=== PATIENT | male | born 1995 | race Caucasian/White ===

== ENCOUNTER → 2019-09-01 | Outpatient (CLI) | payer OTHER ==
--- NOTE | 2019-09-01 10:28 | CT ---
EXAMINATION TYPE: CT wrist LT wo con DATE OF EXAM: 09/01/2019 COMPARISON: None HISTORY: Lt wrist pain CT DLP: 91.[address] of the left wrist with reconstruction imaging. TECHNIQUE: Unenhanced CT of the left wrist was performed with bone and soft tissue window settings lou bmitted in the axial coronal and sagittal planes. At a separate workstation [id number] TR imaging was obtai ambrose. FINDINGS: I do not see evidence for displaced or impacted fracture. No evidence for soft tissue swelling. No de generative changes identified. No soft tissue masses. No bony destructive process. No evidence for sc apholunate dislocation. IMPRESSION: 1. No evidence for fracture or dislocation
== END | disposition home or self-care (01) ==
LOC: RADCTMAIN 07:15
PROVIDERS: ATTEND Orthopaedic Surgery
DX: M25.532 Pain in left wrist (principal); S63.502A Unspecified sprain of left wrist, initial encounter

== ENCOUNTER 2020-04-15 09:58 | Emergency (ER) | payer OTHER ==
[2020-04-15 10:02] VITALS: BP 143/95; PULSE 78; RESP 18; TEMP 98.8
--- NOTE | 2020-04-15 10:16 | ED ---
Recheck HPI - General Chief Complaint: Recheck/Abnormal Lab/Rx Stated Complaint: Male Time Seen by Provider: 04/15/20 10:03 Source: patient Mode of arrival: ambulatory - History of Present Illness Initial Comments: Patient is a 25-year-old male presenting to the emergency department requesting testing for possible herpes exposure. Patient states he went to a local urgent care and had his urine tested for gonorrhea, chlamydia and trichomonas however they said they were not able to do the blood testing for herpes. Patient states he called the health department and states there is a 4 week wait to get in there. Patient is just requesting testing for herpes 1 and 2 virus. He states he currently has no symptoms, no rashes, blisters, discharge, urinary complaints. He denies any recent fever or chills. He has no further complaints at this time. Upon arrival to the ER, his vitals are stable. - Related Data Home Medications Medication Instructions Recorded Confirmed INSULIN ASPART (NovoLOG) [NovoLOG] 0 unit SQ 04/09/14 04/09/14 Insulin Glargine,Hum.rec.anlog 04/09/14 04/09/14 [Lantus Solostar] Previous Rx's Medication Instructions Recorded Cephalexin [Keflex] 500 mg PO Q6HR #40 cap 04/09/14 Hydrocodone/Acetaminophen 1 each PO Q4HR PRN #20 tablet 04/09/14 [Hydrocodone/Acetaminophen 5-325] Allergies Allergy/AdvReac Type Severity Reaction Status Date / Time No Known Allergies Allergy Verified 04/15/20 10:02 Review of Systems ROS Statement: Those systems with pertinent positive or pertinent negative responses have been documented in the HPI. ROS Other: All systems not noted in ROS Statement are negative. Past Medical History Past Medical History: Diabetes Mellitus History of Any Multi-Drug Resistant Organisms: None Reported Past Surgical History: No Surgical Hx Reported Past Psychological History: No Psychological Hx Reported Smoking Status: Never smoker Past Alcohol Use History: Occasional Past Drug Use History: None Reported General Exam - General Exam Comments Initial Comments: GENERAL: Patient is well-developed and well-nourished. Patient is nontoxic and in no acute distress. HEAD: Atraumatic, normocephalic. EYES: Pupils equal round and reactive to light, extraocular movements intact, sclera anicteric, conjunctiva are normal. Eyelids were unremarkable. ENT: Nares patent, oropharynx clear without exudates. Moist mucous membranes. NECK: Normal range of motion, supple without lymphadenopathy or JVD. LUNGS: Unlabored respirations. Breath sounds clear to auscultation bilaterally and equal. No wheezes rales or rhonchi. HEART: Regular rate and rhythm without murmurs, rubs or gallops. ABDOMEN: Soft, nontender, normoactive bowel sounds. No guarding, no rebound. No masses appreciated. : Deferred, declined MUSCULOSKELETAL: Normal extremities with adequate strength and normal range of motion, no pitting or edema. No clubbing or cyanosis. NEUROLOGICAL: Patient is alert and oriented x 3. Motor and sensory are also intact. Normal speech, normal gait. PSYCH: Normal mood, normal affect. SKIN: Warm, Dry, normal turgor, no rashes or lesions noted. Course Vital Signs 04/15/20 10:01 Temperature 98.8 F Pulse Rate 78 Respiratory 18 Rate Blood Pressure 143/95 O2 Sat by Pulse 98 Oximetry Medical Decision Making - Medical Decision Making Patient is a 25-year-old male requesting testing for herpes simplex virus. Patient states he went to an urgent care 2 days ago and was tested for other STDs through his urine but was told they could not do the blood testing. He currently has no symptoms. Patient's blood was taken for HSV 1/2 testing, this is pending. He is stable for discharge. He can follow up with his PCP. Patient is in agreement with this plan of care. Disposition Clinical Impression: Exposure to herpes simplex virus (HSV), Concern about STD in male without diagnosis Disposition: HOME SELF-CARE Condition: Stable Instructions (If sedation given, give patient instructions): Safe Sex (ED) Additional Instructions: Please return to the Emergency Department if symptoms worsen or any other concerns. Your testing is pending at this time. Practice safe sex. Follow-up with PCP. Is patient prescribed a controlled substance at d/c from ED?: No Referrals: None,Stated [Primary Care Provider] - 1-2 days
[2020-04-17 05:13] LABS: Herpes simplex I and/or II IgM 1.34 INDEX (<=0.90); Herpes simplex IgG I Ab 0.12 (< or = 0.90); Herpes simplex IgG II Ab 0.3 (< or = 0.90)
== END 2020-04-15 10:28 | disposition home or self-care (01) ==
LOC: EC 09:58
DX: Z11.3 Encounter for screening for infections with a predominantly sexual mode of transmission (principal); E11.9 Type 2 diabetes mellitus without complications; Z79.4 Long term (current) use of insulin; Z20.2 Contact with and (suspected) exposure to infections with a predominantly sexual mode of transmission
CPT/HCPCS: 36415; 86694; 86695; 86696; 87529; 99283